=== PATIENT | male | born 1950 | race Caucasian/White ===

== ENCOUNTER 2016-12-09 16:14 | Emergency (ER) | payer BC | END 2016-12-09 17:11 | disposition left against medical advice (07) | LOC: UCCORT 16:14 | DX: Z53.21 Procedure and treatment not carried out due to patient leaving prior to being seen by health care provider (principal) ==

== ENCOUNTER 2017-11-26 18:57 | Emergency (ER) | payer BC, MEDICARE ==
[2017-11-26 21:51] VITALS: BP 132/62
[2017-11-26] MEDS ORDERED: Ondansetron ODT TAB* 4 MG PO ONE (22:10)
--- NOTE | 2017-11-26 22:14 | UC ---
Abdominal Pain Male HPI - HPI Summary HPI Summary: 67 yo male with the onset of nausea/dry heaves and diarrhea x 4 some intermittent crampy abd pain currently no nausea had a nisson fundal plication and is unable to vomit - History of Current Complaint Chief Complaint: UCGI Stated Complaint: STOMACH ISSUES Time Seen by Provider: 11/26/17 22:01 Hx Obtained From: Patient Onset/Duration: Gradual Onset, Lasting Hours Severity Initially: Moderate Severity Currently: Mild Pain Intensity: 2 Pain Scale Used: 0-10 Numeric Location: Epigastric Radiates: No Character: Cramping Aggravating Factor(s): Nothing Alleviating Factor(s): Nothing Associated Signs And Symptoms: Positive: Decreased Appetite, Nausea, Diarrhea - Allergies/Home Medications Allergies/Adverse Reactions: Allergies Allergy/AdvReac Type Severity Reaction Status Date / Time Moxifloxacin [From Avelox] Allergy Intermediate confusion Verified 11/26/17 21: 51 Home Medications: Home Medications Amitriptyline TAB* [Elavil TAB*] 10 mg PO BEDTIME 11/26/17 [History Confirmed ] Bisoprolol TAB* [Zebeta TAB*] 0.5 tab PO DAILY 11/26/17 [History Confirmed 11/26] Metronidazole (Topical) [Noritate] 1 % EX DAILY 11/26/17 [History Confirmed ] Tadalafil [Cialis] 5 mg PO BEDTIME 11/26/17 [History Confirmed 11/26/17] PMH/Surg Hx/FS Hx/Imm Hx Previously Healthy: Yes - Surgical History Surgical History: Yes Surgery Procedure, Year, and Place: [facility], [facility]. 3 sinus surgery. hiatal hernia surgery. fx femur. [facility] PROCEDURE - Social History Alcohol Use: Weekly Substance Use Type: None Smoking Status (MU): Former Smoker Type: Cigarettes Amount Used/How Often: 1 PPD Length of Time of Smoking/Using Tobacco: 13-14 Years Have You Smoked in the Last Year: No When Did the Patient Quit Smoking/Using Tobacco: 1982 - Immunization History Most Recent Influenza Vaccination: July 2014 Review of Systems Constitutional: Negative Skin: Negative Eyes: Negative ENT: Negative Respiratory: Negative Cardiovascular: Negative Gastrointestinal: Abdominal Pain, Diarrhea, Nausea Genitourinary: Negative Motor: Negative Neurovascular: Negative Musculoskeletal: Negative Neurological: Negative Psychological: Negative Is Patient Immunocompromised?: No All Other Systems Reviewed And Are Negative: Yes Physical Exam Triage Information Reviewed: Yes Appearance: Well-Appearing, No Pain Distress, Well-Nourished Vital Signs: Initial Vital Signs Temp 99.5 F 11/26/17 21:45 Pulse 67 11/26/17 21:45 Resp 18 11/26/17 21:45 BP 132/62 11/26/17 21:45 Pulse Ox 97 11/26/17 21:45 Vital Signs Reviewed: Yes Eyes: Positive: Conjunctiva Clear ENT: Positive: Hearing grossly normal. Negative: Nasal congestion, Nasal drainage, Trismus, Muffled voice, Hoarse voice Neck: Positive: Supple, Nontender Respiratory: Positive: Lungs clear, Normal breath sounds, No respiratory distress, No accessory muscle use Cardiovascular: Positive: RRR, No Murmur Abdomen Description: Positive: Soft. Negative: Nontender - tender epigastrium, CVA Tenderness (R), CVA Tenderness (L) Bowel Sounds: Positive: Present, Hyperactive Musculoskeletal: Positive: ROM Intact, No Edema Neurological: Positive: Alert Psychological Exam: Normal Skin Exam: Normal Abd Pain Male Course/Dx - Differential Dx/Clinical Impression Provider Diagnoses: acute gastroenteritis Discharge - Discharge Plan Condition: Stable Disposition: HOME Prescriptions: Ondansetron TAB* [Zofran Tab*] 4 mg PO Q6H PRN #10 tab PRN Reason: Nausea Patient Education Materials: Gastroenteritis (ED) Referrals: Jarred Pierre MD [Primary Care Provider] - As Soon As Possible Additional Instructions: if symptoms worsen-constant worsening pain/fever/concerns about dehydration ...go to the ER if not improving over the next 12-24 hours I suggest you see your MD
== END 2017-11-26 22:29 | disposition home or self-care (01) ==
LOC: UCCORT 18:57
DX: K52.9 Noninfective gastroenteritis and colitis, unspecified (principal); Z87.891 Personal history of nicotine dependence
CPT/HCPCS: 99212; A9270-GY; G0463

== ENCOUNTER 2018-03-30 18:20 | Emergency (ER) | payer BC, MEDICARE ==
--- NOTE | 2018-03-30 19:27 | UC ---
Skin Complaint HPI - HPI Summary HPI Summary: C/O bilateral groin rash. Has responded to lotrimin in the past but not responding well. Getting worse in the last week. - History of Current Complaint Time Seen by Provider: 03/30/18 19:19 Stated Complaint: SKIN COMPLAINT Hx Obtained From: Patient Onset/Duration: Gradual Onset, Lasting Weeks - 1+, Worse Since - onset Onset Severity: Mild Current Severity: Moderate Location: Discrete - in the groin Character: Pruritus, Redness Aggravating Factor(s): Clothing Alleviating Factor(s): Nothing Associated Signs & Symptoms: Positive: Cough, Rash. Negative: Diaphoresis, Difficulty Breathing - Allergy/Home Medications Allergies/Adverse Reactions: Allergies Allergy/AdvReac Type Severity Reaction Status Date / Time moxifloxacin [From Avelox] AdvReac Confusion Verified 03/30/18 19:07 Home Medications: Home Medications Azelaic Acid [Finacea] 50 gm TP DAILY PRN 03/30/18 [History Confirmed 03/30/18] Quinapril HCl 20 mg PO BEDTIME 03/30/18 [History Confirmed 03/30/18] Review of Systems Skin: Rash Respiratory: Cough Is Patient Immunocompromised?: No All Other Systems Reviewed And Are Negative: Yes PMH/Surg Hx/FS Hx/Imm Hx - Additional Past Medical History Additional PMH: rosacea Cardiovascular History: Hypertension - Surgical History Surgical History: Yes Surgery Procedure, Year, and Place: [facility], [facility]. 3 sinus surgery. hiatal hernia surgery. fx femur. [facility] PROCEDURE - Family History Known Family History: Positive: Hypertension - Social History Occupation: Retired Lives: With Family Alcohol Use: Weekly Substance Use Type: None Smoking Status (MU): Former Smoker Type: Cigarettes Amount Used/How Often: 1 PPD Length of Time of Smoking/Using Tobacco: 13-14 Years Have You Smoked in the Last Year: No When Did the Patient Quit Smoking/Using Tobacco: 1982 - Immunization History Most Recent Influenza Vaccination: July 2014 Physical Exam Triage Information Reviewed: Yes Appearance: Well-Appearing, No Pain Distress, Well-Nourished Vital Signs Reviewed: Yes Eyes: Positive: Conjunctiva Clear Neck exam: Normal Respiratory: Positive: Lungs clear Cardiovascular: Positive: RRR, Murmur:Sys:Grade _?_/ - 2/6 Male Genital Exam: Positive: Normal Genitalia, Other - mild intertriginous erythema in the inguinal creases. Musculoskeletal Exam: Normal Neurological Exam: Normal Psychological Exam: Normal Skin: Positive: rashes - groin rash Course/Dx - Differential Diagnoses - Skin Complaint Differential Diagnoses: Cellulitis, Contact Dermatitis, Eczema, Urticaria - Diagnoses Provider Diagnoses: Contact dermatitis. Discharge - Sign-Out/Discharge Documenting (check all that apply): Discharge/Admit/Transfer - Discharge Plan Condition: Stable Disposition: HOME Prescriptions: Triamcinolone 0.1% CREAM (NF) [Kenalog 0.1% Cream (NF)] 1 applic TOPICAL BID # 30 gm Patient Education Materials: Contact Dermatitis (ED) Referrals: Jarred Pierre MD [Primary Care Provider] - Additional Instructions: Dye free unscented laundry detergent. No fabric softeners or dryer sheets. Rocky Bernal boxer brief in microfiber - Billing Disposition and Condition Condition: STABLE Disposition: HOME
[2018-03-30 19:32] VITALS: BP 121/72
== END 2018-03-30 19:48 | disposition home or self-care (01) ==
LOC: UCCORT 18:20
DX: L25.9 Unspecified contact dermatitis, unspecified cause (principal); Z88.1 Allergy status to other antibiotic agents; I10 Essential (primary) hypertension; Z87.891 Personal history of nicotine dependence
CPT/HCPCS: 99211; G0463

== ENCOUNTER 2019-10-14 08:32 | Emergency (ER) | payer BC, MEDICARE ==
[2019-10-14 09:30] VITALS: BP 135/67
--- NOTE | 2019-10-14 09:47 | UC ---
Throat Pain/Nasal Daniel HPI - HPI Summary HPI Summary: nasal congestion / pnd x 2 week yellow green nasal discharge, sinus pain and pressure cough with clear sputum no fever, no chills, no body aches - History of Current Complaint Chief Complaint: UCRespiratory Stated Complaint: SINUS AND CHEST CONGESTION Time Seen by Provider: 10/14/19 09:22 Hx Obtained From: Patient Onset/Duration: Gradual Onset, Lasting Weeks - 2, Still Present Severity: Moderate Pain Intensity: 0 Cough: Sputum Appears - clear Associated Signs & Symptoms: Positive: Sinus Discomfort, Nasal Discharge. Negative: Wheezing, Hoarseness, Fever, Vomiting, Rash - Allergies/Home Medications Allergies/Adverse Reactions: Allergies Allergy/AdvReac Type Severity Reaction Status Date / Time moxifloxacin [From Avelox] AdvReac Confusion Verified 10/14/19 09:17 Home Medications: Home Medications Atorvastatin* [Lipitor*] 20 mg PO DAILY 10/14/19 [History Confirmed 10/14/19] Fluticasone NASAL SPRAY 50MCG* [Flonase NASAL SPRAY 50MCG*] 2 spray BOTH NARES DAILY 10/14/19 [History Confirmed 10/14/19] Ivermectin [Soolantra] 1 % EX PRN 10/14/19 [History] PMH/Surg Hx/FS Hx/Imm Hx - Additional Past Medical History Additional PMH: hx of C.diff MVP Cardiovascular History: Cardiac Disease, Hypertension - Surgical History Surgical History: Yes Surgery Procedure, Year, and Place: [facility], [facility]. 3 sinus surgery. hiatal hernia surgery. fx femur. [facility] PROCEDURE - Family History Known Family History: Positive: Hypertension - Social History Alcohol Use: Occasionally Substance Use Type: None Smoking Status (MU): Former Smoker Type: Cigarettes Amount Used/How Often: 1 PPD Length of Time of Smoking/Using Tobacco: 13-14 Years Have You Smoked in the Last Year: No When Did the Patient Quit Smoking/Using Tobacco: 1982 - Immunization History Most Recent Influenza Vaccination: July 2014 Review of Systems All Other Systems Reviewed And Are Negative: Yes Constitutional: Positive: Negative Skin: Positive: Negative Eyes: Positive: Negative ENT: Positive: Nasal Discharge, Sinus Congestion, Sinus Pain/Tenderness. Negative: Sore Throat, Ear Ache Respiratory: Positive: Cough Is Patient Immunocompromised?: No Physical Exam Triage Information Reviewed: Yes Appearance: Well-Appearing, No Pain Distress, Well-Nourished Vital Signs: Initial Vital Signs Temp 98.8 F 10/14/19 09:23 Pulse 60 10/14/19 09:23 Resp 16 10/14/19 09:23 BP 135/67 10/14/19 09:23 Pulse Ox 96 10/14/19 09:23 Vital Signs Reviewed: Yes Eye Exam: Normal Eyes: Positive: Conjunctiva Clear ENT: Positive: Normal ENT inspection, Pharynx normal, Nasal congestion, Nasal drainage, TMs normal, Sinus tenderness. Negative: Pharyngeal erythema, TM bulging, TM dull, TM red, Tonsillar swelling, Tonsillar exudate Neck exam: Normal Neck: Positive: Supple, Nontender, No Lymphadenopathy Respiratory: Positive: Chest non-tender, Lungs clear, Normal breath sounds Cardiovascular: Positive: RRR, No Murmur, Pulses Normal Throat Pain/Nasal Course/Dx - Differential Dx/Diagnosis Provider Diagnosis: Sinusitis Discharge ED - Sign-Out/Discharge Documenting (check all that apply): Patient Departure All imaging exams completed and their final reports reviewed: No Studies - Discharge Plan Condition: Stable Disposition: HOME Prescriptions: Amoxicillin/Clavulanate TAB* [Augmentin TAB 875*] 875 mg PO BID #20 tab Patient Education Materials: Sinusitis (ED) Referrals: Jarred Pierre MD [Primary Care Provider] - If Needed Additional Instructions: will send Augmentin may cont. with fluid, mucinex , flonase for one more week may fill the antibiotics if symptoms are not better after on week - Billing Disposition and Condition Condition: STABLE Disposition: Home
== END 2019-10-14 09:44 | disposition home or self-care (01) ==
LOC: UCCORT 08:32
DX: J32.9 Chronic sinusitis, unspecified (principal); I10 Essential (primary) hypertension; R05 Cough; Z88.1 Allergy status to other antibiotic agents; Z87.891 Personal history of nicotine dependence
CPT/HCPCS: 99212; G0463